=== PATIENT | female | born 1985 | race Native Hawaiian/Other Pacific Islander ===

== ENCOUNTER 2022-08-23 10:26 | Emergency (ER) | payer OTHER ==
[2022-08-23 12:40] LABS: BASOPHILS # (AUTO) 0.1 10^3/uL (0.0-0.1); BASOPHILS % (AUTO) 0.9 %; EOSINOPHILS # (AUTO) 0.2 10^3/uL (0.0-0.7); EOSINOPHILS % (AUTO) 2.1 %; HCT - HEMATOCRIT 40.9 % (37.0-47.0); HGB - HEMOGLOBIN 13.9 g/dL (12.0-16.0); LYMPHOCYTES # (AUTO) 1.8 10^3/uL (1.5-3.5); LYMPHOCYTES % (AUTO) 21.1 %; MEAN CORPUSCULAR HEMOGLOBIN 27.7 pg (27.0-31.0); MEAN CORPUSCULAR VOLUME 81.6 fL (81.0-99.0); MEAN PLATELET VOLUME 8.9 fL (7.9-10.8); MONOCYTES # (AUTO) 0.6 10^3/uL (0.0-1.0); MONOCYTES % (AUTO) 6.8 %; NEUTROPHILS # (AUTO) 5.8 10^3/uL (1.5-6.6); NEUTROPHILS % (AUTO) 68.7 %; PLT - PLATELET COUNT 299 10^3/uL (130-450); RED BLOOD COUNT 5.01 10^6/uL (4.20-5.40); RED CELL DISTRIBUTION WIDTH 13.7 % (12.0-15.0); WHITE BLOOD COUNT 8.4 x10^3/uL (4.8-10.8)
[2022-08-23 12:56] LABS: ALBUMIN 4.2 g/dL (3.2-5.5); ALBUMIN/GLOBULIN RATIO 1.2 (1.0-2.2); BILIRUBIN,TOTAL 0.7 mg/dL (0.2-1.0); CALCIUM 9.2 mg/dL (8.5-10.3); CREATININE 0.7 mg/dL (0.4-1.0); POTASSIUM 3.7 mmol/L (3.5-5.0); TOTAL PROTEIN 7.8 g/dL (6.7-8.2)
--- NOTE | 2022-08-23 13:05 | Ultrasound Report ---
PROCEDURE: OB First Trimester w/TV INDICATIONS: bleeding first trimester OUTSIDE/PRIOR DATING DATA: Last menstrual period (LMP): 05/31/2022. LMP-based estimated date of delivery (CHRISTINE): 03/07/2023. TECHNIQUE: Real-time scanning was performed of the fetus and maternal pelvic organs, with image documentation. Endovaginal scanning was also performed to better visualize the fetus and maternal ovaries. COMPARISON: Prior images from [facility] 08/04/2022 were reviewed FINDINGS: No gestational sac with a viable embryo is identified. Patient reports heavy bleeding. A small amount of fluid is seen measuring 1.2 x 0.7 x 1.0 cm. IMPRESSION: In conjunction with prior imaging from [facility] on 08/04/2022, findings are compatible with pre gnancy failure. Please correlate with hCG, which is not available at this time. Reviewed by: Elvis Luo MD on 08/23/2022 1:04 PM PDT Approved by: Elvis Luo MD on 08/23/2022 1:04 PM PDT Station ID: [id number]
[2022-08-23] MEDS ORDERED: ACETAMINOPHEN 325 MG TABLET PO STA (13:15)
[2022-08-23] MEDS ORDERED: IBUPROFEN 600 MG TABLET PO STA (13:15)
--- NOTE | 2022-08-23 13:16 | ED Physician Documentation ---
History of Present Illness - Stated complaint Stated Complaint: FEMALE , - Chief complaint Chief Complaint: Abd Pain - Additonal information Additional information: Patient 37-year-old female presenting to the emergency department with vaginal bleeding and cramping. States is in first trimester . Had ultrasonography performed at [facility] performed 08/04 that showed an intrauterine , 6 weeks 1 day without heart tones. Developed lower cramping and passage of blood over the course of the last few days. Reports headache and some nausea. Denies fever, chills, chest pain, shortness of breath, abdominal pain, diarrhea, constipation. Review of Systems Constitutional: denies: Fever, Myalgias Eyes: denies: Loss of vision Ears: denies: Loss of hearing Nose: denies: Rhinorrhea / runny nose Throat: denies: Dental pain / toothache Cardiac: denies: Chest pain / pressure Respiratory: denies: Dyspnea GI: denies: Abdominal Pain : reports: Vaginal bleeding Skin: denies: Rash Musculoskeletal: denies: Neck pain Neurologic: reports: Headache. denies: Generalized weakness Psychiatric: denies: Depressed PD PAST MEDICAL HISTORY - Present Medications Home Medications: Ambulatory Orders Medication Instructions Recorded Confirmed No Known Home Medications 08/23/22 08/23/22 - Allergies Allergies/Adverse Reactions: Allergies Allergy/AdvReac Type Severity Reaction Status Date / Time No Known Drug Allergies Allergy Verified 08/23/22 10:58 PD ED PE NORMAL - Vitals Vital signs reviewed: Yes - General General: Alert and oriented X 3, No acute distress - HEENT HEENT: Atraumatic, PERRL, EOMI - Neck Neck: Supple, no meningeal sign, No JVD - Cardiac Cardiac: RRR - Respiratory Respiratory: No respiratory distress - Abdomen Abdomen: Non tender - Female Female : Deferred - Rectal Rectal: Deferred - Derm Derm: Normal color - Extremities Extremities: No deformity Results - Vitals Vitals: Oxygen O2 Source Room air - Labs Labs: Laboratory Tests 08/23/22 08/23/22 08/23/22 12:36 12:36 12:36 WBC 8.4 RBC 5.01 Hgb 13.9 Hct 40.9 MCV 81.6 MCH 27.7 MCHC 34.0 RDW 13.7 Plt Count 299 MPV 8.9 Neut # (Auto) 5.8 Lymph # (Auto) 1.8 Stephenson # (Auto) 0.6 Eos # (Auto) 0.2 Baso # (Auto) 0.1 Absolute Nucleated RBC 0.00 Nucleated RBC % 0.0 Sodium 138 Potassium 3.7 Chloride 103 Carbon Dioxide 25 Anion Gap 10.0 BUN 7 Creatinine 0.7 Estimated GFR (MDRD) 95 Glucose 112 H Calcium 9.2 Total Bilirubin 0.7 AST 19 ALT 18 Alkaline Phosphatase 55 Total Protein 7.8 Albumin 4.2 Globulin 3.6 Albumin/Globulin Ratio 1.2 Lipase 42 HCG, Quant 1574.00 Blood Type 08/23/22 12:39 WBC RBC Hgb Hct MCV MCH MCHC RDW Plt Count MPV Neut # (Auto) Lymph # (Auto) Stephenson # (Auto) Eos # (Auto) Baso # (Auto) Absolute Nucleated RBC Nucleated RBC % Sodium Potassium Chloride Carbon Dioxide Anion Gap BUN Creatinine Estimated GFR (MDRD) Glucose Calcium Total Bilirubin AST ALT Alkaline Phosphatase Total Protein Albumin Globulin Albumin/Globulin Ratio Lipase HCG, Quant Blood Type B POSITIVE PD Medical Decision Making - ED course Complexity details: reviewed old records, reviewed results, re-evaluated patient, d/w patient ED course: Patient 37-year-old female presenting to the emergency department with cramping and vaginal bleeding. This is in the setting of first trimester with confirmed intrauterine performed via ultrasonography at [facility] 08/04. At that time patient 6 weeks 1 day. On arrival to the emergency department afebrile, hemodynamically stable. Some suprapubic tenderness but no guarding, rebound, rigidity. Ultrasonography performed was negative for gestational sac and otherwise consistent with spontaneous miscarriage. Patient's blood type is be positive, quantitative beta hCG Slightly greater than 1500. Labs including hemoglobin otherwise within normal limits. All findings communicated direct with the patient. At this time will discharge with encouragement for follow-up with primary care. Clear return precautions given. Departure - Departure Disposition: 01 Home, Self Care Clinical Impression: Spontaneous Instructions: ED Miscarriage Completed Comments: Thank you for allowing us to care for you today [facility]. Today in the emergency department your evaluated for any possible life- threatening medical emergency. The ultrasound today is consistent with what is known as a spontaneous miscar riage. Your blood type is be positive. It is important that you make a follow-up appoint with your primary care doctor for medical recheck in the next few days. In the meantime I recommend drinking plenty of fluids and getting plenty of rest. If it anytime you have new or worsening symptoms please not hesitate to return. Forms: Activity restrictions Discharge Date/Time: 08/23/22 14:24
[2022-08-23 13:52] VITALS: BP 124/83
== END 2022-08-23 14:24 | disposition home or self-care (01) ==
LOC: ED 10:26
DX: O03.9 Complete or unspecified spontaneous abortion without complication (principal)
CPT/HCPCS: 36415; 76801; 76817; 80053; 83690; 84702; 85025; 86900; 86901; 99283; 99284; A9270

== ENCOUNTER 2023-11-30 15:39 | Outpatient (CLI) | payer OTHER ==
--- NOTE | 2023-11-30 16:41 | Sleep Patient Instructions ---
Sleep Center Visit Summary - Patient Visit Information Reason for Visit: Initial consult for evaluation of sleep disordered breathing and other sleep issues. - Patient Instructions Instructions Attached: Sleep Study Additional Instructions: You will be completing a sleep study, either an in-lab polysomnography (PSG) or home sleep study (HST). You will follow-up in the sleep care office after the sleep study is completed to hear the results and talk about therapy, if needed. You will be called by our office staff to schedule this appointment, but you may contact us with any questions. - Clinic Information Contact: [facility] [address] [place] [address] [email or web address] T: [phone]
--- NOTE | 2023-11-30 16:44 | SLEEP CARE CONSULTATION ---
Information from patient questionnaire entered by Mercedes Pickard. I have reviewed and concur with the information entered by Mercedes Pickard. This document represents the service I personally performed and the decisions made by me, Joya Li ARNP. History of Present Illness Service Date and Time: 11/30/2023 1539 Reason for Visit: New patient Chief Complaint: reports: Insomnia, Excessive daytime sleepiness, Fatigue, Frequent awakenings at night, Other (RESTLESS LEG SYNDROME) Date of Onset: 4 WEEKS Usual bedtime: 2300 Time it takes to fall asleep: 60+MINS Snores at night: Yes Observed to quit breathing while asleep: No Sleeps alone due to snoring: No Number of times waking at night: MULTIPLE Reasons for waking at night: reports: Choking (coughing), Bathroom, Other (UNCOMFORTABLE SENSATIONS AND STRONG URGE TO MOVE LEGS). denies: Gasping for air Toss, Turn, or Twitch while sleeping: Yes Recalls having dreams: Yes Usually gets out of bed at: 0600 Feels refreshed in the morning: No Morning headache: Yes (3-4 times a week, frontal, resolves in 2+ hours) Sleepy or fatigued during the day: Yes Ever fallen asleep while driving: Yes (drowsy driving, no accidents) Takes day naps: No Dreams during day naps: Yes Prior sleep studies: No Additional HPI information: I had the pleasure of seeing MILLI PEDRAZA today regarding the possibility of her having a sleep disorder. Her current complaints are excessive daytime sleepiness, fatigue, frequent night awakenings, insomnia and restless legs syndrome. She says when laying down at night she feels crawling and tingling all over her legs. She says she will randomly wake up with "burning sensation" in her legs but she says it is not too bad. Her PCP referred her here for evaluation of restless legs. She tried to take Tylenol but it did not help the discomfort. She has been told that she snores but no pauses in breathing. - Parasomnia Symptoms Ever been unable to move upon waking from sleep: No Walks in sleep: No Talks in sleep: Yes Ever acted out dreams in sleep: Yes (hands moving during dream) Ever felt weak in the knees when startled or emotional: Yes Bothered by creepy, crawly, restless sensations in legs: Yes (mostly notice in evening) Problems with memory or concentration: Yes (more concentration; does forget things) Subjective Initial [place] Sleepiness Scale score: 19 (11/30/23) Past Medical History Past Medical History: reports: Anxiety, Mood disorder, Other (BACK PAIN, MIGRAINE, PELVIC FLOOR) Social History The patient's occupation is a [employer]. Patient is Single and lives in . Have you smoked in the past 12 months: No Alcohol use: No Caffeine use: Yes Caffeine amount and frequency: 1 CUP QD Family History Family history of sleep disordered breathing: No Allergies and Home Medications Known drug allergies: No Drug allergies reviewed: Yes Home medication list reviewed: Yes (as listed) Allergy and home medication list: Allergies No Known Drug Allergies Allergy (Verified 11/30/23 15:54) Home Medications Medication Instructions Recorded Confirmed Last Taken Type Ascorbic Acid [Vitamin C] See Rx Instructions .ROUTE .COMPLEX 11/30/23 11/30/23 Unknown History ONDANSETRON ODT Prepack 2 [ZOFRAN See Rx Instructions .ROUTE .COMPLEX 11/30/23 11/30/23 Unknown History ODT] Pnv No.95/Ferrous Fum/Folic AC See Rx Instructions .ROUTE .COMPLEX 11/30/23 11/30/23 Unknown History [ Caplet] Rizatriptan Benzoate [Rizatriptan] See Rx Instructions .ROUTE .COMPLEX 11/30/23 11/30/23 Unknown History Review of Systems Weight gain over past 5 years: 15 Cardiovascular: denies: high blood pressure Gastrointestinal: reports: diarrhea Urinary: reports: incontinence Neurological: reports: headaches Psychiatric: reports: anxiety, mood disorder Ear/Nose/Throat: denies: tonsillectomy Musculoskeletal: reports: back pain, muscle pain or cramping Immunologic: reports: sneezing Physical Exam Vital signs obtained and entered by: MERCEDES Morrell MA Blood Pressure: 138/93 (LEFT ARM) Cuff size: regular Heart Rate: 66 O2 Saturation: 100 Height: 5 ft 1 in Weight: 128 lb 3.2 oz Body Mass Index: 24.2 BMI Classification: Normal Neck circumference: 16 Mouth and throat: narrow oropharynx Soft palate: long Hard palate: normal Uvula visualization: 25% Mallampati Class III Tongue: enlarged in size with teeth bui on lateral edges Tonsils: 1+ Neck: normal w/o lymphadenopathy or thyromegaly Heart: regular rate and rhythm Lungs: clear bilaterally Impression and Plan 1. Suspected Obstructive Sleep Apnea-Hypopnea Syndrome, as suggested by a history of loud and irregular snoring, morning headache, frequent awakening during the night, unrefreshed sleep, cognitive impairment, and excessive daytime sleepiness. Narrow oropharynx and obesity are common predisposing factors for obstructive sleep apnea-hypopnea syndrome. I recommend proceeding to polysomn ography to confirm the diagnosis and to assess severity. If the patient has significant sleep disordered breathing, a manual CPAP titration study will also be performed to find the optimal treatment pressure. I informed the patient of what the sleep studies involve and after some discussion, obtained agreement to proceed. The pathophysiology of obstructive sleep apnea-hypopnea syndrome was discussed with the patient and health risks of cardiovascular and cerebrovascular disease if not treated. Risks of drowsy driving discussed in detail and patient advised to avoid long distance driving and to mold puller at the first sign of drowsiness. Patient agreed to plan. * Schedule polysomnography +- manual CPAP titration study and return in 1-2 weeks after the study to discuss result and initiate therapy. * Avoid long distance driving or driving when feeling sleepy. * Avoid alcohol, sedative and muscle relaxant around bedtime. * Review instructions provided by trained office staff on how to prepare for the sleep study. * Return for follow-up after sleep study completed. Plan: PSG and follow up Visit Type: In Office Time Spent with Patient (minutes): 32 Provider Statement: I spent 100% of the Face to Face Visit with the patient with greater than 50% spent counseling the patient and coordination of care.
[2023-11-30 16:52] VITALS: BP 138/93; O2SAT 100
== END 2023-11-30 15:40 | disposition home or self-care (01) ==
LOC: SC 15:39
PROVIDERS: ATTEND Nurse Practitioner Family
DX: R06.83 Snoring (principal); G47.8 Other sleep disorders; R41.89 Other symptoms and signs involving cognitive functions and awareness; G47.10 Hypersomnia, unspecified
CPT/HCPCS: 99203; 99212